=== PATIENT | female | born 1980 | race Caucasian/White ===

== ENCOUNTER 2018-12-20 12:05 | Emergency (ER) | payer MEDICAID ==
[~2018-12-20] VITALS: Ht 152.4 cm; Wt 75.7 kg
[2018-12-20 12:18] VITALS: BP 156/73
--- NOTE | 2018-12-20 12:18 | NUR ---
PT AMBULATED TO BED 07.
--- NOTE | 2018-12-20 12:29 | NUR ---
Pt presents to ED with complaints of N/V x4 days with epigastric pain and headache. Pt denies any fever or chills. AOX4, thai speaking. VSS.
[2018-12-20] MEDS ORDERED: NACL 0.9% 500 ML IV ONE (12:44)
[2018-12-20] MEDS ORDERED: ONDANSETRON 4 MG/2 ML VIAL IVP ONE (12:45)
[2018-12-20] MEDS ORDERED: KETOROLAC 30 MG/ML VIAL IVP ONE (12:45)
--- NOTE | 2018-12-20 13:06 | NUR ---
ULTRASOUND AT BEDSIDE.
[2018-12-20 13:32] LABS: BASOPHILS % (AUTO) 0.9 % (0.0-2.0); EOSINOPHILS % (AUTO) 0.4 % (0.0-4.0); HEMATOCRIT 37.6 % (36-48); HEMOGLOBIN 12.4 g/dL (12.0-16.0); LYMPHOCYTES # (AUTO) 1.1 K/uL (2.5-16.5); LYMPHOCYTES % (AUTO) 22.7 % (20.5-51.1); MEAN CORPUSCULAR HEMOGLOBIN 29 pg (27-31); MEAN CORPUSCULAR HGB CONC 33 g/dL (33-37); MONOCYTES # (AUTO) 0.4 K/uL (0.8-1.0); MONOCYTES % (AUTO) 8.4 % (1.7-9.3); NEUTROPHILS # (AUTO) 3.3 K/uL (1.8-7.7); NEUTROPHILS % (AUTO) 67.6 % (42.2-75.2); PLATELET COUNT (AUTO) 355 K/uL (140-450); RED BLOOD CELL COUNT(AUTO) 4.23 MIL/uL (4.20-5.40); RED CELL DISTRIBUTION WIDTH 13.6 % (11.6-13.7); WHITE BLOOD COUNT (AUTO) 4.9 K/uL (4.8-10.8)
[2018-12-20 13:41] LABS: ALBUMIN 3.4 g/dL (3.4-5.0); ANION GAP 14.4 (8-16); CARBON DIOXIDE 27.2 mmol/L (21-32); CREATININE 0.5 mg/dL (0.6-1.3); POTASSIUM 3.6 mmol/L (3.5-5.1); TOTAL BILIRUBIN 0.3 mg/dL (0.0-1.0)
[2018-12-20] MEDS ORDERED: PANTOPRAZOLE 40 MG INJ VIAL IVP ONE (14:20)
--- NOTE | 2018-12-20 15:38 | NUR ---
IV removed, catheter intact and site benign. Applied folded 4x4 gauze and tape to stop bleeding.
[2018-12-20 15:39] VITALS: BP 135/70
--- NOTE | 2018-12-20 15:39 | NUR ---
Patient discharged with v/s stable. Written and verbal after care instructions given and explained. Patient alert, oriented and verbalized understanding of instructions. Ambulatory with steady gait. All questions addressed prior to discharge. ID band removed. Patient advised to follow up with PMD. Rx of Zofran ODT and Protonix 40mg given. Patient educated on indication of medication including possible reaction and side effects. Opportunity to ask questions provided and answered.
== END 2018-12-20 15:39 | disposition home or self-care (01) ==
LOC: MED 12:05
DX: K29.70 Gastritis, unspecified, without bleeding (principal); K76.89 Other specified diseases of liver
CPT/HCPCS: 36415; 76705; 80053; 81002; 81025; 83690; 85025; 96361; 96374; 96375; 99284; C9113; J1885; J2405; J7030; Q0092

== ENCOUNTER 2021-06-01 09:22 | Emergency (ER) | payer MEDICAID ==
[~2021-06-01] VITALS: Ht 157.5 cm; Wt 75.7 kg
[2021-06-01 09:33] VITALS: BP 157/101
--- NOTE | 2021-06-01 09:37 | NUR ---
Patient ambulated to bed 1.
--- NOTE | 2021-06-01 10:01 | NUR ---
41 Y/O FEMALE C/O HEADACHE DESCRIBES THROBBING 9/10 X4DAYS, NOTED ALSO PT LEFT EYE IS RED FOR 3DAYS. DENIES FEVER/CHILLS. DENIES FEVER/CHILLS. DENIES PMH NKA
[2021-06-01] MEDS ORDERED: KETOROLAC 30 MG/ML VIAL IM ONE (10:30)
[2021-06-01] MEDS ORDERED: PROCHLORPERAZINE 5 MG TAB PO ONE (10:30)
[2021-06-01] MEDS ORDERED: PROCHLORPERAZINE 5 MG TAB ONE (10:34)
[2021-06-01] MEDS ORDERED: KETOROLAC 30 MG/ML VIAL ONE (10:35)
[2021-06-01] MEDS ORDERED: IBUP-2213 PO (11:05)
[2021-06-01] MEDS ORDERED: DIPH25TA53 PO (11:05)
[2021-06-01] MEDS ORDERED: DEXT30DR2 OP (11:05)
[2021-06-01] MEDS ORDERED: PROC-66 PO (11:05)
[2021-06-01 11:16] VITALS: BP 136/77
--- NOTE | 2021-06-01 11:17 | NUR ---
Patient discharged with v/s stable. Written and verbal after care instructions given and explained. Patient alert, oriented and verbalized understanding of instructions. Ambulatory with steady gait. All questions addressed prior to discharge. ID band removed. Patient advised to follow up with PMD. Rx of DEXTRAN 70/HYPROMELLOSE, BENADRYL, IBUPROFEN, COMPAZINE given. Patient educated on indication of medication including possible reaction and side effects. Opportunity to ask questions provided and answered.
== END 2021-06-01 11:17 | disposition home or self-care (01) ==
LOC: MED 09:22
DX: H11.32 Conjunctival hemorrhage, left eye (principal)
CPT/HCPCS: 81025; 96372; 99283; J1885; Q0163; Q0164

== ENCOUNTER 2023-01-10 11:07 | Emergency (ER) | payer MEDICAID ==
[~2023-01-10] VITALS: Ht 167.6 cm; Wt 72.6 kg
[~2023-01-10 11:07] MED LIST: DEXT30DR2 OP; DIPH25TA53 PO; IBUP-2213 PO; PROC-66 PO
[2023-01-10 11:45] VITALS: BP 154/101; PULSE 79; RESP 20; TEMP 98; O2SAT 98
[2023-01-10 12:34] LABS: BASOPHILS # (AUTO) 0.1 K/uL (0.00-0.22); BASOPHILS % (AUTO) 0.7 % (0.0-2.0); EOSINOPHILS % (AUTO) 0.1 % (0.0-4.0); HEMATOCRIT 37.9 % (36-48); HEMOGLOBIN 12.7 g/dL (12.0-16.0); LYMPHOCYTES # (AUTO) 1.6 K/uL (2.5-16.5); LYMPHOCYTES % (AUTO) 17.5 % (20.5-51.1); MEAN CORPUSCULAR HEMOGLOBIN 30 pg (27-31); MEAN CORPUSCULAR HGB CONC 34 g/dL (33-37); MONOCYTES # (AUTO) 0.7 K/uL (0.8-1.0); MONOCYTES % (AUTO) 7.6 % (1.7-9.3); NEUTROPHILS # (AUTO) 6.6 K/uL (1.8-7.7); NEUTROPHILS % (AUTO) 74.1 % (42.2-75.2); PLATELET COUNT (AUTO) 335 K/uL (140-450); RED BLOOD CELL COUNT(AUTO) 4.31 MIL/uL (4.20-5.40); RED CELL DISTRIBUTION WIDTH 14.1 % (11.6-13.7); WHITE BLOOD COUNT (AUTO) 8.9 K/uL (4.8-10.8)
[2023-01-10] MEDS ORDERED: KETOROLAC 30 MG/ML VIAL IM ONE (13:10)
[2023-01-10] MEDS ORDERED: PROCHLORPERAZINE 10 MG/2 ML VIAL IM ONE (13:10)
[2023-01-10 13:14] LABS: ANION GAP 12.4 (8-16); CALCIUM 8.8 mg/dL (8.5-10.1); CARBON DIOXIDE 29.3 mmol/L (21-32); CREATININE 0.4 mg/dL (0.6-1.3); POTASSIUM 3.7 mmol/L (3.5-5.1)
[2023-01-10 13:21] LABS: ALBUMIN 3.7 g/dL (3.4-5.0); BILIRUBIN,DIRECT 0.1 mg/dL (0.0-0.3); TOTAL BILIRUBIN 0.4 mg/dL (0.0-1.0); TOTAL PROTEIN, SERUM 7.4 g/dL (6.4-8.2)
[2023-01-10 13:50] LABS: APPEARANCE,URINE CLEAR (CLEAR); BILIRUBIN,URINE NEGATIVE (NEGATIVE); BLOOD, URINE TRACE-I (NEGATIVE); COLOR,URINE YELLOW (YELLOW); LEUKOCYTE ESTERASE ,URINE 1+ (NEGATIVE); NITRITE, URINE NEGATIVE (NEGATIVE); PROTEIN,URINE TRACE (NEGATIVE); UGLUCOSE NEGATIVE (NEGATIVE); UROBILINOGEN,URINE 0.2 EU/dL (0.2 - 1)
[2023-01-10 14:01] LABS: BACTERIA,URINE 1+ /HPF (None Seen); RBC,URINE 0-5 /HPF (0-5); SQUAMOUS EPITHELIAL CELL,UR 20-50 /LPF (0-3 (FEW))
[2023-01-10] MEDS ORDERED: IBUP-2213 PO (15:26)
[2023-01-10] MEDS ORDERED: CEPH-588 PO (15:26)
[2023-01-10] MEDS ORDERED: ONDA-188 PO (15:26)
[2023-01-10] MEDS ORDERED: ONDANSETRON 4 MG ODT PO ONE (15:30)
[2023-01-10 15:42] VITALS: BP 135/80; PULSE 88; RESP 16; TEMP 98; O2SAT 99
== END 2023-01-10 15:42 | disposition home or self-care (01) ==
LOC: MED 11:07
DX: N39.0 Urinary tract infection, site not specified (principal); R51.9 Headache, unspecified; R11.10 Vomiting, unspecified; Z79.899 Other long term (current) drug therapy; Z79.1 Long term (current) use of non-steroidal anti-inflammatories (NSAID); Z79.2 Long term (current) use of antibiotics
CPT/HCPCS: 36415; 70450; 80048; 80076; 81001; 81025; 83690; 85025; 87086; 96372; 99285; J0780; J1885; Q0162